=== PATIENT | female | born 2000 | race Two or more races ===

== ENCOUNTER 2024-09-19 09:47 | Emergency (ER) | payer OTHER, MEDICAID ==
[~2024-09-19] VITALS: Ht 162.6 cm; Wt 51.9 kg
--- NOTE | 2024-09-19 09:58 | ECG ---
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
--- NOTE | 2024-09-19 10:13 | ED.PDOC ---
History of Present Illness HPI Comments 24-year-old female presents to the ER with no prior medical history associated with a chief complaint of chest pain. Patient reports that she has chest pain/shortness a breath after dinner last night for which hit really hard yesterday. Patient does state sometimes have stress in life. Denies chills, fever, N/V/D. No other associated symptoms, modifiers, recent injuries or sick contacts present at this time. Chief Complaint: Chest Pain Time Seen by MD: 10:00 Reviewed Notes: Nurses Notes, Medications, Allergies Allergies: Coded Allergies: NO KNOWN ALLERGIES (Unverified , 09/19/24) Information Source: Patient Mode of Arrival: Ambulatory Severity: Moderate Timing: Hours Duration: Since onset, Hours Prehospital treatment: None Past Medical History PAST MEDICAL HISTORY: Denies Surgical History: Denies all surgeries ARTILLERY OR [employer]ER History: No Pertinent ARTILLERY OR [employer] OBS[employer]ER History Family History Family History: Reviewed,noncontributory to illness, Unknown Social History Smoker: Non-Smoker Alcohol: Denies ETOH Use Drugs: Denies Drug Use Lives In: Home Constitutional: denies: chills, diaphoresis, fatigue, fever, malaise, sweats, weakness, others EENTM: denies: blurred vision, double vision, ear bleeding, ear discharge, ear drainage, ear pain, ear ringing, eye pain, eye redness, hearing loss, mouth pain, mouth swelling, nasal discharge, nose bleeding, nose congestion, nose pain, photophobia, tearing, throat pain, throat swelling, voice changes, others Respiratory: reports: shortness of breath; denies: cough, hemoptysis, orthopnea, SOB at rest, SOB with excertion, stridor, wheezing, others Cardiovascular: reports: chest pain; denies: dizzy spells, diaphoresis, Dyspnea on exertion, edema, irregular heart beat, left arm pain, lightheadedness, palpitations, PND, syncope, others Gastrointestinal: denies: abdomen distended, abdominal pain, blood streaked bowels, constipated, diarrhea, dysphagia, difficulty swallowing, hematemesis, melena, nausea, poor appetite, poor fluid intake, rectal bleeding, rectal pain, vomiting, others Genitourinary: denies: abnormal vagina bleeding, burning, dyspareunia, dysuria, flank pain, frequency, hematuria, incontinence, pain, , vagina discharge, urgency, others Neurological: denies: dizziness, fainting, headache, left sided numbness, left sided weakness, numbness, paresthesia, pre-existing deficit, right sided numbne ss, right sided weakness, seizure, speech problems, tingling, tremors, weakness, others Musculoskeletal: denies: back pain, gout, joint pain, joint swelling, muscle pain, muscle stiffness, neck pain, others Integumetry: denies: bruises, change in color, change in hair/nails, dryness, laceration, lesions, lumps, rash, wounds, others Allergic/Immunocompromised: denies: Difficulty Healing, Frequent Infections, Hives, Itching, others Hematologic/Lymphatic: denies: anemia, blood clots, easy bleeding, easy bruising, swollen glands, others Endocrine: denies: excessive hunger, excessive sweating, excessive thirst, excessive urination, flushing, intolerance to cold, intolerance to heat, unexplained weight gain, unexplained weight loss, others Psychiatric: denies: anxiety, bipolar disorder, depression, hopeless, panic disorder, schizophrenia, sleepless, suicidal, others All Other Systems: Reviewed and Negative Physical Exam General Appearance: Moderate Distress, Normal HEENT: Normal ENT Inspection, Pharynx Normal, TMs Normal Neck: Full Range of Motion, Non-Tender, Normal, Normal Inspection Respiratory: Chest Non-Tender, Lungs Clear, No Accessory Muscle Use, No Respiratory Distress, Normal Breath Sounds Cardiovascular: No Edema, No JVD, No Murmur, No Gallop, Normal Peripheral Pulses, Regular Rate/Rhythm Breast Exam: Deferred Gastrointestinal: No Organomegaly, Non Tender, No Pulsatile Mass, Normal Bowel Sounds, Soft Genitalia: Deferred Pelvic: Deferred Rectal: Deferred Extremities: No calf tenderness, Normal capillary refill, Normal inspection, Normal range of motion, Non-tender, No pedal edema Musculoskeletal : Apperance: Normal 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 Was a procedure done?: No EKG EKG : Pulse Rate (adult): 94 [place]: Normal Cardiac Rhythm: NSR Block: None Hypertrophy: None ST: Normal Differential Dx Considerations may include: Anxiety Musculoskeletal pain X-Ray, Labs, Meds, VS Vital Signs Date Time Temp Pulse Resp B/P (MAP) Pulse Ox O2 Delivery O2 Flow Rate FiO2 09/19/24 10:13 94 09/19/24 09:57 94 09/19/24 09:55 97.9 92 18 133/84 (100) 100 97.9 Lab Test 09/19/24 10:20 Range/Units Troponin I High Sensitivity Pending Current Medications Medications (Trade) Dose Ordered Sig/Tenzin Route Start Time Stop Time Status Last Admin Lorazepam (Ativan Tablet) 1 mg ONCE ONCE PO 09/19/24 10:15 09/19/24 10:16 DC 09/19/24 10:26 Aspirin 325 mg ONCE ONCE PO 09/19/24 10:15 09/19/24 10:16 DC 09/19/24 10:26 Patient alert. Complaining of chest pain. Vitals stable. Answering all questions. Was given aspirin. Was given Ativan. EKG reviewed does not show any acute changes. Was told to follow up with her primary care physician. Was told to come back if there is any problem. Time of 1ST Reevaluation: 10:30 Reevaluation 1ST: Improved Patient Education/Counseling: Diagnosis, Treatment, Prognosis Family Education/Counseling: No Family Present SEPSIS Sepsis Screen Date sepsis recognized/suspect: Sep 19, 2024 Time Sepsis recognized/suspect: 950 Recent Procedure: No On Antibiotic Therapy: No Respiratory Rate >20: No Heart Rate >90: Yes Temp<36 C (96.8 F) or >38.3 C: No SBP <90 or MAP <65 mmHG: No New Acute Mental Status Change: No Is the patient on CPAP, BIPAP,: No Physician Orders Troponin-I Hs (09/19/24 10:06) Troponin-I Hs (09/19/24 11:06) Troponin-I Hs (09/19/24 13:06) Urinalysis (09/19/24 10:06) Vital Signs Date Time Temp Pulse Resp B/P (MAP) Pulse Ox O2 Delivery O2 Flow Rate FiO2 09/19/24 10:13 94 09/19/24 09:57 94 09/19/24 09:55 97.9 92 18 133/84 (100) 100 97.9 Medications Medications Dose Ordered Sig/Tenzin Route Start Time Stop Time Status Last Admin Dose Admin Aspirin 325 mg ONCE ONCE PO 09/19/24 10:15 09/19/24 10:16 DC 09/19/24 10:26 Lorazepam 1 mg ONCE ONCE PO 09/19/24 10:15 09/19/24 10:16 DC 09/19/24 10:26 Departure 1 Departure Time of Disposition: 10:29 Impression: Primary Impression: Musculoskeletal chest pain Additional Impression: Anxiety Disposition: HOME / SELF CARE / HOMELESS Condition: Good Discharged With: Self Critical Care Note Critical Care Time?: No Stability Stability form required: No I personally scribed for ZACHARY MARION MD ([email or web address]) on 09/19/24 at 10:13. Electronically submitted by Melchor Muir ([email or web address]). ZACHARY MARION MD Sep 19, 2024 10:13
[2024-09-19 10:25] VITALS: PULSE 92; RESP 18; O2SAT 100
[2024-09-19] MEDS: LORazepam 0.5 MG TAB PO ONE (10:26)
[2024-09-19 11:11] LABS: Urine Protein, UAD Negative (Negative)
[2024-09-19 12:02] VITALS: BP 137/79; PULSE 88; RESP 18; TEMP 99.1; O2SAT 99
== END 2024-09-19 12:05 | disposition home or self-care (01) ==
LOC: ER 09:47
DX: R07.89 Other chest pain (principal); F41.9 Anxiety disorder, unspecified
CPT/HCPCS: 36415; 81001; 84484; 93005